=== PATIENT | female | born 1960 | race Caucasian/White ===

== ENCOUNTER → 2020-10-15 | Outpatient (CLI) | payer OTHER ==
--- NOTE | 2020-10-19 16:06 | PATH ---
[address] [address] PATHOLOGY RPT PROCEDURE Name: LARA CARVALHO Room: [facility] LAUREN Dumas#: [id number] Admission: 10/15/20 Date of : 62 Discharge: Report #: [id number] Path Case #: [id number] LCA Accession Number: [id number] . 01 Material submitted: . breast - LEFT BREAST BIOPSY. Modifiers: left . 01 Clinical history: . LEFT BREAST MASS, 12:00 3CM FROM NIPPLE COLLECTED 1418, FORMALIN 14:20 . 02 Diagnosis: Left breast mass, 12:00, 3 cm from nipple, image guided core biopsies: - Fibroadenoma and benign breast tissue with mild chronic inflammation, negative for atypia. See comment. LBQ 10/19/2020 1559 Local . 02 Comment: Reviewed with Dr. Kyle Easton who agrees with the diagnosis on 10/18/2020. (ALDA/db; 10/18/2020) . 02 Electronically signed: . Gus Noe MD, Pathologist NPI- [id number] . 01 Gross description: . Received in formalin labeled "Lara Carvalho, left breast biopsy" and further labeled on the requisition as "left breast mass 12:00 3 cm FN" are multiple broussard-white cylindrical soft tissue cores measuring in aggregate 1.6 x 0.6 x 0.2 cm. The specimen is submitted entirely in cassettes A1-A3. The specimen is removed from the patient at 1418 and placed in formalin at 1420 on 10/15/2020. The specimen is removed from formalin at 1850 on 10/17/2020. ([facility]; 10/16/2020) [facility] 10/16/2020 1045 Local . 02 Pathologist provided ICD-10: D24.2, N61.0 . 02 CPT . 790517 Specimen Comment: A courtesy copy of this report has been sent to [phone] Specimen Comment: [phone] Specimen Comment: Report sent to / DR MEDEL Performed at: [address], [place], [place] [id number] [place] [address] PATHOLOGY RPT PROCEDURE Name: TAMARLARA Zhang Room: [facility]#: [id number] Admission: 10/15/20 Date of : 62 Discharge: Report #: [id number] Path Case #: [id number] MD Griffin Hameed MD Phone: [phone] Performed at: 02 [facility] [address], [place], [place] [id number] MD Gus Noe MD Phone: [phone]
== END | disposition home or self-care (01) ==
LOC: M.ULTRA 12:33
PROVIDERS: ATTEND Surgery
DX: D24.2 Benign neoplasm of left breast (principal); N61.0 Mastitis without abscess; R92.1 Mammographic calcification found on diagnostic imaging of breast

== ENCOUNTER → 2020-10-26 | Outpatient (CLI) | payer OTHER ==
--- NOTE | 2020-10-29 13:08 | PATH ---
[address] [address] PATHOLOGY RPT PROCEDURE Name: LARA CARVALHO Room: [facility] Alesia#: [id number] Admission: 10/26/20 Date of : 62 Discharge: Report #: [id number] Path Case #: [id number] LCA Accession Number: [id number] . 01 Material submitted: . breast - RIGHT BREAST TISSUE. Modifiers: right . 01 Clinical history: . RIGHT BREAST STEREOTACTIC BIOPSY FOR MASS . 02 Diagnosis: RIGHT BREAST MASS, STEREOTACTIC BIOPSY: - FOCAL ATYPICAL DUCTAL HYPERPLASIA INVOLVING SMALL PAPILLOMA, VAGUELY NODULAR FIBROSIS, APOCRINE CHANGE AND LUMINAL CALCIFICATIONS, NEGATIVE FOR MALIGNANCY. SEE COMMENT. [facility] 10/29/2020 1010 Local . 02 Comment: Properly controlled immunohistochemical stains performed on A2 show the following results supporting the diagnosis: . P63: Highlights myoepithelial cells around ductal/lobular structures. Smooth muscle myosin heavy chain: Highlights myoepithelial cells around ductal/lobular structures. . Reviewed with Dr. Kyle Easton on 10/29/2020, who agrees with the diagnosis. . Alyson (acting [facility] Breast Navigator), notified at approximately 1200 on 10/29/2020. (ALDA:neeraj:db; 10/29/2020) . 02 Electronically signed: . Gus Noe MD, Pathologist NPI- [id number] . 01 Gross description: . Received in formalin labeled "Lara Carvalho and right breast tissue". Received are multiple white-yellow fibroadipose breast tissue cores ranging from 1.0-2.1 cm in length and 0.2-0.3 cm in diameter. The specimen is entirely submitted in cassettes A1 through A5. The specimen was collected 10/26/2020 at 11:30 AM and placed into formalin at 11:40 AM. The specimen will be removed from formalin on 10/26/2020 at 11:40 PM. The specimen will be in formalin more than 6 hours and less than 72 hours.(BLJ; 10/26/2020) BLJ/BLJ 10/28/[address] [place] [address] . 02 Pathologist provided ICD-10: N62, D24.1, N60.31 [place] [address] PATHOLOGY RPT PROCEDURE Name: LARA CARVALHO Room: [facility]#: [id number] Admission: 10/26/20 Date of : 62 Discharge: Report #: [id number] Path Case #: [id number] . 02 CPT . 544916, G31525, K68701 Specimen Comment: A courtesy copy of this report has been sent to [phone] Specimen Comment: [phone] Specimen Comment: Report sent to / DR MENDIOLA Performed at: [address], [place], [place] [id number] MD Griffin Hameed MD Phone: [phone] Performed at: 02 [facility] [address], [place], [place] [id number] MD Gus Noe MD Phone: [phone]
== END | disposition home or self-care (01) ==
LOC: M.RAD 10-19 13:00
PROVIDERS: ATTEND Surgery
DX: D24.1 Benign neoplasm of right breast (principal); R92.1 Mammographic calcification found on diagnostic imaging of breast; N60.31 Fibrosclerosis of right breast; N62 Hypertrophy of breast

== ENCOUNTER → 2020-11-19 | Outpatient (CLI) | payer OTHER | LOC: M.ULTRA 08:53 | PROVIDERS: ATTEND Surgery | DX: N60.91 Unspecified benign mammary dysplasia of right breast (principal); D24.2 Benign neoplasm of left breast; R55 Syncope and collapse ==

== ENCOUNTER → 2020-12-03 | Day surgery (SDC) | payer OTHER ==
[~2020-12-03] MED LIST: NORVASC5 MG PO; TRAMADOL 50 MG50 MG PO
--- NOTE | 2020-12-03 11:52 | EKG ---
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
--- NOTE | 2020-12-08 11:06 | OP ---
[address] [address] OPERATIVE REPORT Name: BRENNA BOYLE Vicente Room: [facility].#: [id number] Admission: 12/03/20 Attend Phys: Briana Quintanilla DO Discharge: Date of : 62 Report #: [id number] THIS REPORT FOR: cc: Sudha Alcantar Tonja K FNP Brock, Christie M. DO ~ DATE OF SURGERY: 12/03/2020 PREOPERATIVE DIAGNOSIS: Right breast atypical ductal hyperplasia. POSTOPERATIVE DIAGNOSIS: Right breast atypical ductal hyperplasia. FINDINGS: Right breast hologic tag in the right upper outer quadrant. SURGEON: Briana Quintanilla DO FIELD CROP I FARMWORKER: Kavon, MS3 OPERATION PERFORMED: Right breast tag guided lumpectomy. ANESTHESIA: LMA and local. ESTIMATED BLOOD LOSS: 10 mL. DRAINS: None. SPECIMENS: Right breast lumpectomy and right breast superior margin. COMPLICATIONS: None. CONDITION: Stable. DISPOSITION: PACU to home. HISTORY OF PRESENT ILLNESS: The patient is a pleasant 60-year-old female who presented to my office with a change in her mammogram. She had undergone a biopsy, which revealed atypical ductal hyperplasia. We discussed that this was a precancerous lesion and should be removed. Risks and benefits were discussed in detail and the patient agreed to proceed. PROCEDURE NOTE: The patient presented preoperatively to Radiology and underwent placement of a right breast hologic tag. She then presented to preop where she underwent informed consent. She was taken to the OR where she was laid supine on the operating room table. SCDs were placed on bilateral lower extremities. Ancef was given in the perioperative period. General LMA anesthesia was induced by Anesthesia without difficulty. Right breast [place] [address] OPERATIVE REPORT Name: BRENNA BOYLE Room: [facility]#: [id number] Admission: 12/03/20 Attend Phys: Briana Quintanilla DO Discharge: Date of : 62 Report #: [id number] standard sterile fashion. Time-out was performed to verify the patient and procedure. The [place] [employer] probe was brought onto the field and the area of the tag was identified in the right upper outer quadrant. Incision was marked out in this area. A 10 mL of 0.5% Marcaine were injected in the area of the planned incision. Incision was made with 15 blade. Cautery was used for hemostasis. Cautery was then used to dissect down through the breast tissue until we were approximately 1.5 cm away from the tag. Allis clamp was then used to grasp the tissue around the tag. Lumpectomy specimen was formed utilizing the tag for guidance. The specimen was marked in the superior and lateral direction. It was then taken off to Radiology for mammography. Hemostasis was assured within the wound while we were waiting for Radiology. Radiology returned with a picture of our specimen, which revealed that we had both the tag and the clip. The clip was a little bit close to the superior margin, so an additional superior margin was created using cautery. It was marked in the superior and lateral direction and handed off for permanent pathology. Hemostasis was assured within the wound. Wound was irrigated until clear. Wound was closed in a layered fashion using deep and superficial stitches of 3-0 Vicryl in an inverted interrupted fashion. Skin wound was closed with a running 4-0 Monocryl. A total of 30 mL of 0.5% Marcaine were used to anesthetize the wound. Wound was then cleansed and covered with Dermabond. The patient was allowed to awaken from anesthesia, was extubated and transported to the recovery room with no further difficulties. Counts were correct at the conclusion of the case. <ELECTRONICALLY SIGNED> By: Briana Quintanilla DO 12/08/20 1106 1341 1436Cmargarito Quintanilla DO /nt
--- NOTE | 2020-12-09 13:08 | PATH ---
[address] [address] PATHOLOGY RPT PROCEDURE Name: LARA BOYLE Room: [facility] M.R.#: [id number] Admission: 12/03/20 Date of : 62 Discharge: Report #: [id number] Path Case #: [id number] LCA Accession Number: [id number] . 01 Material submitted: . PART A: breast - RIGHT BREAST TISSUE. Modifiers: right PART B: breast - SUPERIOR MARGIN. Modifiers: right, superior . 01 Clinical history: . LUMPECTOMY ATYPICAL HYPERPLASIA OF RIGHT BREAST, FIBROADENOMA LEFT BREAST SYNCOPE . 02 Diagnosis: A. Right breast tissue: - Benign breast tissue with cystic apocrine change with prior biopsy site in association with copper-colored linear clip, negative for atypia. . B. Superior margin: - Benign breast tissue consisting predominantly of fat. . (ALDA:kam; 12/07/2020) MBR 12/09/2020 1059 Local . 02 Comment: Recent prior stereotactic biopsy of "right breast mass" showed focal atypical ductal hyperplasia involving small papilloma ([id number]). . (ALDA:kristal; 12/09/2020) . 02 Electronically signed: . Gus Noe MD, Pathologist NPI- [id number] . 01 Gross description: . A. Fixative: Formalin Labeled: Right breast tissue Specimen received: An oriented broussard-yellow, irregular fibrofatty soft tissue segment Oriented: A short suture and a long suture are present, but suture designation is not provided on the specimen container or requisition. The short suture shall be designated by the grosser as "superior" and the long suture shall be designated by the grosser "lateral". Dimensions: 6.0 cm from medial to lateral, 4.5 cm from superior to inferior, and 1.2 cm from anterior to posterior Weight: 24 g The specimen is inked as follows: [place] [address] PATHOLOGY RPT PROCEDURE Name: LARA BOYLE Room: [facility]#: [id number] Admission: 12/03/20 Date of : 62 Discharge: Report #: [id number] Path Case #: [id number] inferior-blue anterior-green posterior-black lateral-orange medial-yellow Sectioned from: Lateral to medial Number of slices: 11 Lesion: Rodriguez-white, well-demarcated, gritty measuring 1.0 x 1.0 x 0.5 cm Lesion location: Slices 4-6 Lesion to margins: Grossly abuts the superior 3.0 cm to inferior 0.3 cm to anterior 0.5 cm to posterior 2.0 cm to lateral 3.0 cm to medial Biopsy clip: A copper-colored, linear biopsy clip is identified within the mass in slice 6. Uninvolved breast parenchyma: 95% broussadr-yellow, lobulated fatty tissue and 5% white fibrous tissue. . The specimen is submitted as follows: A1: Slice 1, senior human resources representative sections of lateral margin, perpendicularly sectioned A2, slice 3, adjacent to lesion A3, slice 4 with lesion and relationship to superior, anterior, and posterior margins A4-A5: Slice 5 with lesion, bisected A6: Slice 6 with lesion and biopsy clip site A7: Slice 7, adjacent to lesion A8: Slice 11, senior human resources representative sections of medial margin, perpendicularly sectioned . The specimen is removed from the patient at 1406 and placed in formalin at 1417 on 12/03/20. The specimen is removed from formalin at 1840 on 12/04/20. The specimen is in formalin for greater than 6 hours and less than 72 hours. . B. The specimen is received in formalin, labeled "Deven, Lara and superior margin". It consists of an oriented broussard-yellow, irregular fibrofatty soft tissue segment weighing 5 g and measuring 3.2 cm from medial to lateral, 2.5 cm from superior to inferior, and 1.3 cm from anterior to posterior. The specimen is oriented with a short suture and a long suture. Suture designation is not provided on the specimen container or requisition. The short suture shall be designated by the grosser as "superior" and the long suture shall be designated by the grosser as "lateral". The specimen is inked as follows: superior-red [place] [address] PATHOLOGY RPT PROCEDURE Name: LARA BOYLE Room: [facility]#: [id number] Admission: 12/03/20 Date of : 62 Discharge: Report #: [id number] Path Case #: [id number] anterior-green posterior-black lateral-orange medial-yellow The specimen is serially sectioned from lateral to medial into 8 slices. No lesions are grossly identified. No biopsy clips are identified. The parenchyma is 95% broussard-yellow fatty tissue and 5% white fibrous tissue. The specimen is entirely submitted as follows: B1: Slice 1, lateral margin, perpendicularly sectioned B2: Slices 2 and 3 B3: Slice 4 B4: Slice 5 B5: Slice 6 B6: Slice 7 B7: Slice 8, medial margin, perpendicularly sectioned . The time removed from patient and the time placed in formalin is not indicated on the specimen container or requisition. The specimen is removed from formalin at 1840 on 12/04/20. The specimen is in formalin for greater than 6 hours and less than 72 hours. (MRF; 12/03/2020) MFE/MFE 12/07/2020 1558 Local . 02 Pathologist provided ICD-10: N62, D24.2 . 02 CPT . 141296, 685962 Specimen Comment: A courtesy copy of this report has been sent to [phone] Specimen Comment: [phone] Specimen Comment: Report sent to / DR MENDIOLA Specimen Comment: Report sent to Performed at: 01 [facility] [address], [place] [address] MD Griffin Hameed MD Phone: [phone] Performed at: [address] [id number] MD Gus Noe MD Phone: [phone]
== END | disposition home or self-care (01) ==
LOC: M.SUR 08:58
PROVIDERS: ATTEND Surgery
DX: D24.1 Benign neoplasm of right breast (principal); N62 Hypertrophy of breast; R55 Syncope and collapse; Z20.822 Contact with and (suspected) exposure to COVID-19; Z88.8 Allergy status to other drugs, medicaments and biological substances

== ENCOUNTER 2021-01-15 17:42 | Emergency (ER) | payer OTHER ==
[~2021-01-15] VITALS: Ht 167.6 cm; Wt 94.3 kg
--- NOTE | ~2021-01-15 | EMS ---
[address] [address] EMS Patient Care Report Name: LARA BOYLE Room: [facility]#: [id number] Admission: 01/15/21 Attend Phys: Discharge: Date of : 62 Report #: [id number] THIS REPORT FOR: //name// Report Transmitted: 01/15/2021 17:32 EMS Care Summary [facility] Incident [id number] @ 01/15/2021 16:30 Incident [address] [place] [address] Patient LARA BOYLE Female, 60 Years 1960 Patient Address [address] [place] [address] Patient History Hypertension (HTN), Patient Allergies Phenergan, Patient Medications Amlodipine, Lisinopril, Chief Complaint Dizziness Disposition Transported No Lights/[place] Dispatch Reason Unconscious/Fainting Transported To [facility] Narrative [facility] was dispatched to a local residence for a patient who was dizzy and light-headed. [facility] responded from the station, and arrived on scene without incident. [address] [address] EMS Patient Care Report Name: LARA BOYLE Room: [facility]#: [id number] Admission: 01/15/21 Attend Phys: Discharge: Date of : 62 Report #: [id number] Upon arrival to the scene, the patient, (Lara Boyle) was found seated upright on the toilet in her bathroom. Lara stated that she was feeling off, and that she felt overheated. Lara stated that she was also having diarrhea upon EMS contact. She stated that had been going on today. No immediate life threats or injuries were noted. Lraa was alert and oriented to person, place, time and event. Lara was delayed in getting to the ambulance due to the diarrhea. Lara stated that she had been able to eat and drink earlier in the day. She stated that this happened shortly after taking her dogs for a walk. She stated that she came inside and felt overheated, dizzy, weak, and nauseated. Lara advised that this has happened once before. She stated that she was unsure of what caused this, or of any diagnoses, because the hospital did not find anything wrong. Her reported that he thought she had a colonoscopy scheduled for next week. Lara finished in the bathroom, and was assisted to the stair chair. She was buckled in, and taken to the cot. She was assisted to the cot, covered with a blanket, and all seat belts were applied. She was taken to the ambulance and loaded without incident. Once Lara was loaded into the ambulance, she was placed on the panel monitor. Both a 5-Lead and 12-Lead EKG was obtained, showing a sinus tachycardia without ectopy or elevation. IV access was obtained as documented in the flowchart of this report. Zofran was administered as documented in this report. Non-emergency transport to the hospital began. During transport, Lara advised that her nausea was gone, but she still felt a bit dizzy. No other changes in patient condition were noted. Report was called to the receiving hospital. Upon arrival to the hospital, Lara was unloaded from the ambulance and taken inside without incident. She was transferred to the hospital bed, report was given to nursing staff, signatures were obtained, and patient care was transferred. [facility] returned to service area in service. Initial Vitals @16:45P: 120,R: 14,BP: 134/78,Pain: 0/10,GCS: 15,SpO2: 97,Revised Trauma: 12, @17:39P: 96,R: 14,GCS: 15,SpO2: 94, @16:57P: 100,R: 16,BP: 127/77,Pain: 0/10,GCS: 15,SpO2: 94,Revised Trauma: 12, @17:27P: 96,R: 16,BP: 126/95,Pain: 0/10,GCS: 15,SpO2: 94,Revised Trauma: 12, @17:12P: 97,R: 14,BP: 124/94,Pain: 0/10,GCS: 15,Glucose: 124,SpO2: 95,Revised Trauma: 12, @17:00P: 104,R: 16,Pain: 0/10,GCS: 15,Temp: 97.4F,SpO2: 93, Assessments @17:14MENTAL:Place Oriented,Event Oriented,Person Oriented,[place] [address] EMS Patient Care Report Name: LARA BOYLE Room: [facility]#: [id number] Admission: 01/15/21 Attend Phys: Discharge: Date of : 62 Report #: [id number] Oriented,SKIN:HEENT:Eyes: Left Pupil: 3-mm,Eyes: Right Pupil: 3-mm,LUNG SOUNDS:General: Nausea,General: Diarrhea,ABDOMEN:General: Nausea,General: Diarrhea,PELVIS//GI:EXTREMITIES:Capillary Refill: Right Upper: < 2 Sec,PULSE:Radial: 2+ Normal,NEURO:@17:16MENTAL:Person Oriented,Place Oriented,Event Oriented,Time Oriented,SKIN:HEENT:Head/Face: No Abnormalities,Eyes: No Abnormalities,Neck/Airway: No Abnormalities,LUNG SOUNDS:ABDOMEN:PELVIS//GI:EXTREMITIES:Left Arm: No Abnormalities,Right Arm: No Abnormalities,Left Leg: No Abnormalities,Right Leg: No Abnormalities,PULSE:NEURO: Impression Dizziness Procedures @16:45ALS AssessmentResponse: UnchangedSucceeded@17:00Normal Saline (.9% NaCl) 10cc (18 ga) Site: Antecubital-LeftResponse: UnchangedSucceeded@17:03Zofran - 4 Milligrams (mg) - Intravenous (IV)Response: Improved@17:3912-Lead ECG@17:0012-Lead ECG Timeline 16:28,Call Received 16:30,Dispatched 16:31,En Route 16:37,On Scene 16:38,At Patient 16:45,ALS Assessment,Response: UnchangedSucceeded, 16:45,BP: 134/78 M,PULSE: 120,RR: 14 R,SPO2: 97 Ox,ETCO2: ,BG: ,PAIN: 0,GCS: 15, 16:57,BP: 127/77 M,PULSE: 100,RR: 16 R,SPO2: 94 Ox,ETCO2: ,BG: ,PAIN: 0,GCS: 15, 17:00,Normal Saline (.9% NaCl) 10cc 18 ga Site: Antecubital-Left,Response: UnchangedSucceeded, 17:00,12-Lead ECG, 17:00,BP: / M,PULSE: 104,RR: 16 R,SPO2: 93 Ox,ETCO2: ,BG: ,PAIN: 0,GCS: 15, 17:03,Zofran - 4 Milligrams (mg) - Intravenous (IV),Response: Improved 17:07,Depart Scene 17:12,BP: 124/94 M,PULSE: 97,RR: 14 R,SPO2: 95 Ox,ETCO2: ,B,PAIN: 0,GCS: 15, 17:27,BP: 126/95 M,PULSE: 96,RR: 16 R,SPO2: 94 Ox,ETCO2: ,BG: ,PAIN: 0,GCS: 15, 17:39,12-Lead ECG, 17:39,BP: / M,PULSE: 96,RR: 14 R,SPO2: 94 Ox,ETCO2: ,BG: ,PAIN: ,GCS: 15, 17:40,At Destination 18:30,Call Closed Disclaimer v1.1 Copyright 2020 [employer] [place] [address] EMS Patient Care Report Name: LARA BOYLE Vicente Room: [facility]#: [id number] Admission: 01/15/21 Attend Phys: Discharge: Date of : 62 Report #: [id number] This EMS Care Summary contains data elements from the applicable legal record (which may be displayed differently). It is designed to provide pertinent information for the following purposes: continuity of care, clinical quality, and state data reporting. The complete legal record is available to ED staff and administrators of the receiving hospital in ES's Patient Tracker. All data is provided "as is."
[2021-01-15] MEDS ORDERED: LISINOPRIL10 MG PO (17:53)
[2021-01-15 18:07] LABS: ABSOLUTE EOSINOPHILS 0.1 thou/uL (0.0-0.7); ABSOLUTE LYMPHOCYTES 2.4 thou/uL (0.8-5.3); ABSOLUTE MONOCYTES 0.6 thou/uL (0.0-1.2); ABSOLUTE NEUTROPHILS 8.9 thou/uL (1.6-8.1); BASOPHILS 0.4 %; EOSINOPHILS 0.6 %; HEMATOCRIT 39.6 % (37.0-47.0); HEMOGLOBIN 13.4 gm/dL (12.0-15.0); LYMPHOCYTES 20.3 %; MCH 30.8 pg (26.0-34.0); MCHC 33.9 g/dL (28.0-37.0); MCV 91.1 fL (80.0-100.0); MPV 7.8 fl. (7.2-11.1); NUCLEATED RBCS 0 /100WBC; PLATELET COUNT* 217 thou/uL (150-400); POLYS 73.7 %; RBC 4.35 mil/uL (4.20-5.00); RDW-CV 13.4 % (10.5-14.5); WBC 12.1 thou/uL (4.0-11.0)
[2021-01-15 18:14] LABS: CALCIUM 9.1 mg/dL (8.5-10.1); POTASSIUM 4.2 mmol/L (3.5-5.1)
[2021-01-15 18:18] LABS: ALBUMIN 4.1 g/dL (3.4-5.0); TOTAL BILIRUBIN 0.3 mg/dL (<0.1-1.0); TOTAL PROTEIN 7.6 g/dL (6.4-8.2)
[2021-01-15 19:03] LABS: URINE BILIRUBIN NEGATIVE (Negative); URINE BLOOD TRACE (Negative); URINE CLARITY CLEAR; URINE COLOR YELLOW; URINE GLUCOSE-RANDOM NEGATIVE (Negative); URINE KETONES NEGATIVE (Negative); URINE LEUKOCYTES-REFLEX 1+ (Negative); URINE NITRITE-REFLEX NEGATIVE (Negative); URINE PROTEIN NEGATIVE (Negative); URINE SPECIFIC GRAVITY 1.025 (1.005-1.030); URINE UROBILINOGEN 0.2 E.U./dl (0.2-1.0)
[2021-01-15 19:08] LABS: CRYSTALS None Seen /LPF (None Seen); HYALINE CASTS 4-10 Moderate /LPF (None Seen); MUCUS 4-6 Moderate strn/LPF (None Seen)
[2021-01-15 19:09] LABS: SQUAMOUS 4-10 Moderate /LPF (0-3)
[2021-01-15 19:10] LABS: BACTERIA-REFLEX None Seen /HPF (None Seen); URINE RBC 0-2 Rare /HPF (0-2); URINE WBC-REFLEX 6-15 Few /HPF (0-5)
[2021-01-15] MEDS ORDERED: CEPHALEXIN500 MG PO ×2 (19:40→19:47)
[2021-01-15 20:00] VITALS: BP 114/70
--- NOTE | 2021-01-16 10:14 | EKG ---
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[facility] : 1960 Requested By: Rush Eddy Order Number: [id number] MD: José Miguel Son Measurements Intervals [place] Rate: 95 P: TN: QRS: 35 QRSD: 81 T: -17 QT: 340 QTc: 428 Interpretive Statements NSR Low voltage, precordial leads Borderline repolarization abnormality Compared to ECG 12/03/2020 11:46:02 Low QRS voltage now present Electronically Signed On 01-16-2021 10:14:29 CDT by José Miguel Son [email or web address] <ELECTRONICALLY SIGNED> By: Mohan Son MD, [facility] 01/16/21 1014 1743 1743 F. José Miguel oSn MD, [facility] /EPI
== END 2021-01-15 20:01 | disposition home or self-care (01) ==
LOC: M.ERS 17:42
PROVIDERS: Physician Assistant
DX: N39.0 Urinary tract infection, site not specified (principal); I10 Essential (primary) hypertension; Z79.899 Other long term (current) drug therapy; Z88.8 Allergy status to other drugs, medicaments and biological substances

== ENCOUNTER → 2021-02-23 | Outpatient (CLI) | payer OTHER ==
[~2021-02-23] MED LIST changes: +CEPHALEXIN500 MG PO; +LISINOPRIL10 MG PO
== END ==
LOC: M.CT 14:14
PROVIDERS: ATTEND Internal Medicine Cardiovascular Disease
DX: Z13.6 Encounter for screening for cardiovascular disorders (principal)